=== PATIENT | male | born 1945 | race Two or more races ===

== ENCOUNTER 2022-03-08 21:44 | Inpatient (IN) | payer OTHER ==
[~2022-03-08] VITALS: Ht 167.6 cm; Wt 95.7 kg
[~2022-03-08 21:44] MED LIST: CRESTOR5 MG PO; NABUMETONE750 MG PO; NORVASC2.5 MG PO; TRICOR48 MG PO; ZESTRIL2.5 MG PO
[2022-03-08] MEDS ORDERED: TAMS0.4C PO (22:28)
[2022-03-08] MEDS ORDERED: ATORVASTATIN CA40 MG PO (22:29)
[2022-03-08] MEDS ORDERED: MICARDIS80 MG PO (22:29)
[2022-03-08] MEDS ORDERED: FINASTERIDE5 MG PO (22:30)
[2022-03-08] MEDS ORDERED: SYNTHROID100 MCG PO (22:30)
--- NOTE | 2022-03-08 22:33 | NUR ---
SE RECIBE PTE ALERTA ORIENTADO X3. PTE REFIERE SENTIR DOLOR RON ABDOMINAL DESDE HOY EN LA MADRUGADA.PTE REFIERE TENER VOMITOS X5.SE CELE S/V Y SE UBICA.
--- NOTE | 2022-03-08 23:40 | NUR ---
PACIENTE ALERTA Y ORIENTADO X3. SE ORIENTA SOBRE TX Y PROCEDIMIENTO A REALIZAR Y REFIRIO ENTENDER. SE ADMINISTRA MEDICAMENTOS ORDENADOS POR MD. SE REALIZA MUESTRAS DE LABORATORIO BAJO MEDIDAS ASEPTICAS. CANALIZACION PATENTE Y LIANE DE EDEMA Y ERITEMA. SE MANTIENE BAJO OBSERBACION POR CAMBIOS SIGNIFICATIVOS.
--- NOTE | 2022-03-09 06:25 | NUR ---
PACIENTE ALERTA Y ORIENTADO X3. SE ORIENTA SOBRE TX A RECIBIR Y REFIRIO ENTENDER. SE ADMINISTRA MEDICAMENTO MAY ORDEN MEDICA. SE MIDE SIGNOS VITALES.
--- NOTE | 2022-03-09 06:53 | NUR ---
SE ENTREGA CONTRASTE ORAL PARA ESTUDIO, SE NOTIFICA A PERSONAL DE RADIOLOGIA.
--- NOTE | 2022-03-09 08:30 | NUR ---
SE RECIBE PTE DEL TURNO ANTERIOR, ALERTA Y ORIENTADA EN DARIUS SCOTT ESFERAS, UBICADO EN ANABEL, NIVEL MAS BAJO, HOPE DE IDENTIFICACION Y BARANDAS ELEVADAS POR PRECAUCION. SE OBSERVA CON BUEN PATRON RESPIRATORIO RESPIRATORIO, PIEL TIBIA AL TACTO, IV PATENTE Y LIANE DE EDEMA O ERITEMA CON 0.9% NSS @200ML/HR. PENDIENTE A REALIZAR CT ABD-PELVICO 9:40AM, NOTIFICADO A PERSONAL DE TURNO. PENDIENTE CONSULTA CON DR PETERSON. SE MANTIENE BAJO OBSERVACION.
[2022-03-11] MEDS ORDERED: MONTELUKAST SOD10 MG (10:48)
[2022-03-11] MEDS ORDERED: VITAMIN D3250 MCG (10:48)
[2022-03-11] MEDS ORDERED: FENOFIBRIC ACI135 MG (10:48)
[2022-03-11] MEDS ORDERED: TADALAFIL5 MG (10:48)
[2022-03-11] MEDS ORDERED: TELMISARTAN-HC1 EAC2 (10:48)
[2022-03-11] MEDS ORDERED: DOXEPIN HCL100 MG (10:48)
[2022-03-20] MEDS ORDERED: MICARDIS80 MG PO (10:27)
[2022-03-20] MEDS ORDERED: SYNTHROID100 MCG PO (10:27)
[2022-03-20] MEDS ORDERED: TADALAFIL5 MG PO (10:27)
[2022-03-20] MEDS ORDERED: ATORVASTATIN CA40 MG PO (10:27)
[2022-03-20] MEDS ORDERED: PLAVIX75 MG PO (10:27)
[2022-03-20] MEDS ORDERED: NORVASC2.5 MG PO (10:27)
[2022-03-20] MEDS ORDERED: TAMS0.4C PO (10:27)
[2022-03-20] MEDS ORDERED: TRICOR48 MG PO (10:27)
[2022-03-20] MEDS ORDERED: ELIQUIS5 M1 PO (10:27)
[2022-03-20] MEDS ORDERED: FINASTERIDE5 MG PO (10:27)
[2022-03-20] MEDS ORDERED: VITAMIN D3250 MCG PO (10:27)
== END 2022-03-20 11:54 | disposition home or self-care (01) | DRG 389 ==
LOC: ER 21:44 → SURG 03-09 14:10
PROVIDERS: ADMIT Internal Medicine; ATTEND Internal Medicine
PROC: BW21ZZZ Computerized Tomography (CT Scan) of Abdomen and Pelvis (ICD-10-PCS; principal; 2022-03-09)
PROC: BW21YZZ Computerized Tomography (CT Scan) of Abdomen and Pelvis using Other Contrast (ICD-10-PCS; 2022-03-10)
PROC: 02HV33Z Insertion of Infusion Device into Superior Vena Cava, Percutaneous Approach (ICD-10-PCS; 2022-03-11)
PROC: 3E0F7GC Introduction of Other Therapeutic Substance into Respiratory Tract, Via Natural or Artificial Opening (ICD-10-PCS; 2022-03-11)
PROC: B246ZZZ Ultrasonography of Right and Left Heart (ICD-10-PCS; 2022-03-12)
PROC: BH3 Imaging, Skin, Subcutaneous Tissue and Breast, Magnetic Resonance Imaging (MRI) (ICD-10-PCS; 2022-03-13)
PROC: B54MZZZ Ultrasonography of Right Upper Extremity Veins (ICD-10-PCS; 2022-03-16)
DX: K56.699 Other intestinal obstruction unspecified as to partial versus complete obstruction (principal); I82.621 Acute embolism and thrombosis of deep veins of right upper extremity; J44.9 Chronic obstructive pulmonary disease, unspecified; E03.8 Other specified hypothyroidism; N20.0 Calculus of kidney; N28.1 Cyst of kidney, acquired; I10 Essential (primary) hypertension; E11.22 Type 2 diabetes mellitus with diabetic chronic kidney disease; N18.9 Chronic kidney disease, unspecified; G47.33 Obstructive sleep apnea (adult) (pediatric); Z20.822 Contact with and (suspected) exposure to COVID-19
CPT/HCPCS: 72198; 74182

== ENCOUNTER 2023-01-28 21:30 | Emergency (ER) | payer OTHER ==
[~2023-01-28] VITALS: Ht 167.6 cm; Wt 90.7 kg
[~2023-01-28 21:30] MED LIST changes: +ATORVASTATIN CA40 MG PO; +DOXEPIN HCL100 MG; +ELIQUIS5 M1 PO; +FENOFIBRIC ACI135 MG; +FINASTERIDE5 MG PO; +MICARDIS80 MG PO; +MONTELUKAST SOD10 MG; +PLAVIX75 MG PO; +SYNTHROID100 MCG PO; +TADALAFIL5 MG; +TADALAFIL5 MG PO; +TAMS0.4C PO; +TELMISARTAN-HC1 EAC2; +VITAMIN D3250 MCG; +VITAMIN D3250 MCG PO
[2023-01-28 23:27] LABS: HEMATOCRIT 41.6 % (39.0-48.0); HEMOGLOBIN 13.9 g/dL (13-16.00); MEAN CELL VOLUME 82.5 fL (80.0-100.00); MEAN CORPUSCULAR HEMOGLOBIN 27.5 pg (27.00-32.0); MEAN CORPUSCULAR HGB CONC 33.3 g/dl (32.0-36.0); PLATELET COUNT 229 K/uL (150-450); RED BLOOD COUNT 5.04 M/uL (4.00-6.00); RED CELL DISTRIBUTION WIDTH 14.9 % (11.5-14.5)
[2023-01-29 00:57] LABS: URINE APPEARANCE Cloudy; URINE BILIRRUBIN Negative (NEGATIVE); URINE BLOOD Large; URINE COLOR Yellow; URINE GLUCOSE Negative (NEGATIVE); URINE LEUKOCYTE Small; URINE NITRATE Negative; URINE PROTEIN 30 (NEGATIVE)
[2023-01-29 01:00] LABS: URINE BACTERIA 133.5 uL (0.0-1933); URINE EPITHELIAL CELLS 15.3 uL (0.0-38.8); URINE RBC 1095.6 uL (0.0-20.8); URINE WBC 58.4 uL (0.0-23.2)
[2023-01-29 01:03] LABS: CALCIUM 9.5 mg/dL (8.5-10.1); CREATININE SERUM 2.37 mg/dL (0.70-1.30); GFR 26.84; POTASSIUM 4.2 mEq/L (3.5-5.1)
== END 2023-01-29 04:57 | disposition home or self-care (01) ==
LOC: ER 21:30
PROVIDERS: Emergency Medicine
DX: N20.1 Calculus of ureter (principal); I10 Essential (primary) hypertension
CPT/HCPCS: 36415; 96365; 96366; 96372; 99284; J2405; J3490

== ENCOUNTER 2023-01-30 21:37 | Inpatient (IN) | payer OTHER ==
[~2023-01-30] VITALS: Ht 167.6 cm; Wt 90.7 kg
[2023-01-31 00:06] LABS: HEMATOCRIT 40.7 % (39.0-48.0); HEMOGLOBIN 13.5 g/dL (13-16.00); MEAN CELL VOLUME 83.2 fL (80.0-100.00); MEAN CORPUSCULAR HEMOGLOBIN 27.6 pg (27.00-32.0); MEAN CORPUSCULAR HGB CONC 33.2 g/dl (32.0-36.0); PLATELET COUNT 224 K/uL (150-450); RED BLOOD COUNT 4.89 M/uL (4.00-6.00); RED CELL DISTRIBUTION WIDTH 14.6 % (11.5-14.5)
[2023-01-31 00:25] LABS: URINE APPEARANCE Clear; URINE BILIRRUBIN Negative (NEGATIVE); URINE BLOOD Negative; URINE COLOR Yellow; URINE GLUCOSE Negative (NEGATIVE); URINE LEUKOCYTE Negative; URINE NITRATE Negative; URINE PROTEIN Negative (NEGATIVE); URINE UROBILINOGEN 0.2 E.U./dl
[2023-01-31 00:29] LABS: URINE BACTERIA 16.3 uL (0.0-1933); URINE RBC 2.8 uL (0.0-20.8); URINE WBC 3.5 uL (0.0-23.2)
[2023-01-31 00:31] LABS: ALBUMIN 3.7 gm/dL (3.4-5.0); BILIRUBIN TOTAL 0.82 mg/dL (0.3-1.2); CALCIUM 9.3 mg/dL (8.5-10.1); CREATININE SERUM 2.81 mg/dL (0.70-1.30); GFR 22.05; GLOBULINA 3.8 G/DL (2.4-3.5); POTASSIUM 3.69 mEq/L (3.5-5.1); TOTAL PROTEIN 7.5 gm/dL (6.4-8.2)
[2023-02-01 07:50] LABS: HEMATOCRIT 35.8 % (39.0-48.0); HEMOGLOBIN 12.3 g/dL (13-16.00); MEAN CELL VOLUME 81.4 fL (80.0-100.00); MEAN CORPUSCULAR HEMOGLOBIN 27.9 pg (27.00-32.0); MEAN CORPUSCULAR HGB CONC 34.3 g/dl (32.0-36.0); PLATELET COUNT 215 K/uL (150-450); RED CELL DISTRIBUTION WIDTH 15.1 % (11.5-14.5)
[2023-02-01 08:13] LABS: PH,URINE 5.5 (5.0-8.0); URINE APPEARANCE Clear; URINE BILIRRUBIN Negative (NEGATIVE); URINE BLOOD Trace; URINE COLOR Yellow; URINE GLUCOSE Negative (NEGATIVE); URINE LEUKOCYTE Trace; URINE NITRATE Negative; URINE PROTEIN Negative (NEGATIVE); URINE UROBILINOGEN 0.2 E.U./dl
[2023-02-01 08:17] LABS: URINE EPITHELIAL CELLS 6.1 uL (0.0-38.8); URINE RBC 4.7 uL (0.0-20.8); URINE WBC 27.8 uL (0.0-23.2)
[2023-02-01 08:24] LABS: INR 1.08; PARTIAL THROMBOPLASTIN TIME 33.1 SECONDS (22.0-34.0); PROTHROMBIN TIME 11.3 SECONDS (9.0-11.5)
[2023-02-01 08:29] LABS: ERYTHROCYTE SEDIMENTATION RATE 33 mm/hr
[2023-02-01 08:43] LABS: ALBUMIN 2.8 gm/dL (3.4-5.0); BILIRUBIN TOTAL 0.4 mg/dL (0.3-1.2); BILIRUBIN,CONJUGATED 0.14 mg/dL (0.0-0.2); BILIRUBIN,UNCONJUGATED 0.26 mg/dL (0.0-0.6); CALCIUM 8.5 mg/dL (8.5-10.1); CHOL HDL RATIO 2.7 (0-5.0); CREATININE SERUM 1.66 mg/dL (0.70-1.30); GFR 40.48; MAGNESIUM 1.7 mg/dL (1.8-2.4); PHOSPHOROUS 2.5 mg/dL (2.5-4.9); POTASSIUM 3.59 mEq/L (3.5-5.1); PROSTATIC SPECIFIC ANTIGEN 1.35 NG/ML (0.010-4.00); T4 FREE 1.02 NG/ML (0.76-1.46); TOTAL PROTEIN 5.8 gm/dL (6.4-8.2); TSH 2.36 uIU/mL (0.358-3.74)
[2023-02-01 08:48] LABS: C-REACTIVE PROTEIN 10.9 MG/DL (0.00-0.29)
[2023-02-02 08:33] LABS: HEMATOCRIT 33.2 % (39.0-48.0); HEMOGLOBIN 11.5 g/dL (13-16.00); MEAN CELL VOLUME 80.8 fL (80.0-100.00); MEAN CORPUSCULAR HGB CONC 34.7 g/dl (32.0-36.0); PLATELET COUNT 224 K/uL (150-450); RED BLOOD COUNT 4.12 M/uL (4.00-6.00); RED CELL DISTRIBUTION WIDTH 14.7 % (11.5-14.5)
[2023-02-02 09:01] LABS: ALBUMIN 2.6 gm/dL (3.4-5.0); BILIRUBIN TOTAL 0.28 mg/dL (0.3-1.2); CALCIUM 8.2 mg/dL (8.5-10.1); CREATININE SERUM 1.32 mg/dL (0.70-1.30); GFR 52.73; GLOBULINA 2.8 G/DL (2.4-3.5); POTASSIUM 3.71 mEq/L (3.5-5.1); TOTAL PROTEIN 5.4 gm/dL (6.4-8.2)
[2023-02-02 10:26] LABS: URINE PROT QUANT 24HR 11.1 MG/DL
[2023-02-02 10:31] LABS: URINE PROT QUANT 24 HR 172.05 MG/24HR (42-225)
[2023-02-02] MEDS ORDERED: NORVASC5 MG PO (16:10)
[2023-02-02] MEDS ORDERED: FENOFIBRIC ACI135 MG PO (16:10)
[2023-02-02] MEDS ORDERED: VITAMIN D3250 MCG PO (16:10)
[2023-02-02] MEDS ORDERED: AMOX1TAB5 PO (16:10)
[2023-02-02] MEDS ORDERED: FINASTERIDE5 MG PO (16:10)
[2023-02-02] MEDS ORDERED: BUDESONIDE0.5 MG/2 M IH (16:10)
[2023-02-02] MEDS ORDERED: TADALAFIL5 MG PO (16:10)
[2023-02-02] MEDS ORDERED: TOPROL XL50 M1 PO (16:10)
[2023-02-02] MEDS ORDERED: SYNTHROID100 MCG PO (16:10)
[2023-02-02] MEDS ORDERED: TAMS0.4C PO (16:10)
[2023-02-02] MEDS ORDERED: ATORVASTATIN CA40 MG PO (16:10)
[2023-02-02] MEDS ORDERED: CLONAZEPAM0.5 MG PO (16:10)
[2023-02-02] MEDS ORDERED: MONTELUKAST SOD10 MG PO (16:10)
== END 2023-02-02 16:34 | disposition home or self-care (01) | DRG 694 ==
LOC: ER 21:38 → MEDJ 01-31 10:57 → MEDI 01-31 12:14 → MEDJ 01-31 12:51
PROVIDERS: General Practice; ADMIT Internal Medicine; ATTEND Internal Medicine
PROC: BW21ZZZ Computerized Tomography (CT Scan) of Abdomen and Pelvis (ICD-10-PCS; principal; 2023-01-30)
PROC: BW40ZZZ Ultrasonography of Abdomen (ICD-10-PCS; 2023-01-31)
DX: N20.9 Urinary calculus, unspecified (principal); N17.9 Acute kidney failure, unspecified; N20.1 Calculus of ureter; N18.9 Chronic kidney disease, unspecified